=== PATIENT | female | born 1965 | race African-American/Black ===

== ENCOUNTER 2016-05-24 01:46 | Emergency (ER) | payer OTHER ==
[~2016-05-24] VITALS: Ht 170.2 cm; Wt 99.8 kg
--- NOTE | ~2016-05-24 | EKG ---
[address] [address] ELECTROCARDIOGRAM REPORT Name: DEIRDRE RIVERA [id number] Admission: 05/24/16 Attend Phys: Discharge: 05/24/16 Date of : 61 Report #: [id number] THIS REPORT FOR: //name// [facility] ED Test Date: 2016-05-24 Test Time: 01:56:47 Pat Name: DEIRDRE RIVERA Department: Room: Gender: F Export Coordinator: RUDOLPH : 1965 Requested By: Shameka Pina Order Number: [id number] MD: Drake Hamilton Measurements Intervals [place] Rate: 105 P: 50 NE: 127 QRS: 28 QRSD: 84 T: -20 QT: 358 QTc: 474 Interpretive Statements Sinus tachycardia Borderline T abnormalities, diffuse leads Compared to ECG 12/22/2015 10:34:37 T-wave abnormality now present Sinus rhythm no longer present ST (T wave) deviation no longer present Electronically Signed On 05-24-2016 15:31:31 CDT by Drake Hamilton [email or web address] <ELECTRONICALLY SIGNED> By: Drake Hamilton MD 05/24/16 1531 [id number] [id number] Drake Hamilton MD /EPI
[~2016-05-24 01:46] MED LIST: ADVIL100 M2 PO; BENTYL20 MG PO; DUONEB 2.5-0.5 M3 ML; FLEXERIL PO; FLONASE 0.05%50 MCG; IBUPROFEN 800800 M1 GT; LEVAQUIN 500 M500 M2 PO; MECLIZINE 25 MG25 M1 PO; MUCINEX TA600 MG/TA2 PO; NASAL SPRAY; NEURONTIN 300300 M1 PO; NORFLEX100 MG PO; PERCOCET 5-3251 EACH PO; PRILOSEC 20 MG20 MG PO; RANITIDINE 150150 MG PO; SUDAFED 12 HOU120 MG PO; TUSSIN15 MG/5 ML PO; TYLENOL COLD H1 EACH PO; ULTRAM 50MG TAB50 MG PO; VENTOLIN HFA 1818 GM; ZEPHREX-D30 MG PO; ZOFRAN 4 MG ORAL4 MG PO
[2016-05-24] MEDS ORDERED: ZYRTEC10 M5 PO (01:55)
[2016-05-24 02:17] LABS: ABSOLUTE NEUTROPHILS 3.2 thou/uL (1.4-8.2); BASOPHILS 0.9 % (0.0-2.0); EOSINOPHILS 2.2 % (0.0-3.0); HEMATOCRIT 34.5 % (37.0-47.0); HEMOGLOBIN 11.3 gm/dL (12.0-15.0); LYMPHOCYTES 32.7 % (24.0-44.0); MCH 26.4 pg (26.0-34.0); MCHC 32.8 g/dL (28.0-37.0); MCV 80.4 fL (80.0-100.0); MONOCYTES 6.1 % (1.0-8.0); PLATELET COUNT 222 thou/uL (150-400); POLYS 58.1 % (36.0-66.0); RBC 4.29 mil/uL (4.20-5.00); RDW 13.6 % (10.5-14.5); WBC 5.5 thou/uL (4.0-11.0)
[2016-05-24 02:19] LABS: MANUAL DIFF NO
[2016-05-24 02:27] LABS: ANION GAP 12 mmol/L (7-16); BUN 12 mg/dL (7-18); CALCIUM 9.2 mg/dL (8.5-10.1); CHLORIDE 105 mmol/L (98-107); CO2 26 mmol/L (21-32); GLUCOSE 141 mg/dL (70-99); POTASSIUM 3.2 mmol/L (3.5-5.1); SODIUM 143 mmol/L (136-145); TROPONIN-I < 0.04 ng/mL (<0.04-0.07)
[2016-05-24] MEDS ORDERED: XANAX 0.5 MG0.5 M1 PO (02:47)
[2016-05-24 03:10] VITALS: BP 121/80
== END 2016-05-24 03:11 | disposition home or self-care (01) ==
LOC: ER 01:46
PROVIDERS: Emergency Medicine
DX: F41.9 Anxiety disorder, unspecified (principal); R42 Dizziness and giddiness; R06.00 Dyspnea, unspecified; Z90.49 Acquired absence of other specified parts of digestive tract; Z88.6 Allergy status to analgesic agent; Z88.5 Allergy status to narcotic agent; Z88.8 Allergy status to other drugs, medicaments and biological substances

== ENCOUNTER 2016-09-28 18:58 | Emergency (ER) | payer OTHER ==
[~2016-09-28] VITALS: Ht 167.6 cm; Wt 99.8 kg
[~2016-09-28 18:58] MED LIST changes: +ANTIVERT25 MG PO; +AUGMENTIN 875-1 EACH PO; +XANAX 0.5 MG0.5 M1 PO; +ZYRTEC10 M5 PO
[2016-09-28 19:56] LABS: CALCIUM 9.4 mg/dL (8.5-10.1); CREATININE 0.9 mg/dL (0.6-1.0); POTASSIUM 3.6 mmol/L (3.5-5.1)
[2016-09-28 21:42] VITALS: BP 155/95
== END 2016-09-28 21:43 | disposition home or self-care (01) ==
LOC: ER 18:58
PROVIDERS: Nurse Practitioner
DX: R42 Dizziness and giddiness (principal); L98.8 Other specified disorders of the skin and subcutaneous tissue; J32.9 Chronic sinusitis, unspecified

== ENCOUNTER 2016-11-02 20:09 | Emergency (ER) | payer OTHER ==
[~2016-11-02] VITALS: Ht 167.6 cm; Wt 97.1 kg
[2016-11-02] MEDS ORDERED: COZAAR 25 MG TA25 M1 PO (20:23)
[2016-11-02 21:50] LABS: CALCIUM 9.5 mg/dL (8.5-10.1); CREATININE 0.9 mg/dL (0.6-1.0); POTASSIUM 3.6 mmol/L (3.5-5.1)
[2016-11-02 23:29] VITALS: BP 135/82
== END 2016-11-02 23:30 | disposition home or self-care (01) ==
LOC: ER 20:09
PROVIDERS: Physician Assistant
DX: S86.911A Strain of unspecified muscle(s) and tendon(s) at lower leg level, right leg, initial encounter (principal); Z98.51 Tubal ligation status; Z90.49 Acquired absence of other specified parts of digestive tract; Z88.5 Allergy status to narcotic agent; X58.XXXA Exposure to other specified factors, initial encounter; Y93.89 Activity, other specified; Y92.89 Other specified places as the place of occurrence of the external cause; Y99.8 Other external cause status

== ENCOUNTER 2017-04-19 17:19 | Emergency (ER) | payer OTHER ==
[~2017-04-19] VITALS: Ht 170.2 cm; Wt 97.5 kg
[~2017-04-19 17:19] MED LIST changes: +COZAAR 25 MG TA25 M1 PO
[2017-04-19] MEDS ORDERED: FLONASE 0.05%50 MCG NASAL (17:37)
[2017-04-19 17:43] LABS: URINE BILIRUBIN NEGATIVE (Negative); URINE BLOOD NEGATIVE (Negative); URINE CLARITY CLEAR; URINE COLOR YELLOW; URINE GLUCOSE-RANDOM* NEGATIVE (Negative); URINE KETONES NEGATIVE (Negative); URINE LEUKOCYTES 2+ (Negative); URINE NITRITE NEGATIVE (Negative); URINE PROTEIN (DIPSTICK) NEGATIVE (Negative); URINE UROBILINOGEN 0.2 E.U./dl (0.2-1.0)
[2017-04-19 17:49] LABS: BACTERIA 1-9 Few /HPF (None Seen); CASTS None Seen /LPF (None Seen); CRYSTALS None Seen /LPF (None Seen); SQUAMOUS 0-3 Few /LPF (0-3); URINE RBC None Seen /HPF (0-2); URINE WBC 6-15 Few /HPF (0-5)
[2017-04-19] MEDS ORDERED: BACTRIM DS TAB1 EACH PO (17:54)
[2017-04-19 18:27] VITALS: BP 153/95
== END 2017-04-19 18:29 | disposition home or self-care (01) ==
LOC: ER 17:19
PROVIDERS: Emergency Medicine
DX: J32.9 Chronic sinusitis, unspecified (principal); N39.0 Urinary tract infection, site not specified; F41.9 Anxiety disorder, unspecified; Z90.49 Acquired absence of other specified parts of digestive tract; Z88.5 Allergy status to narcotic agent

== ENCOUNTER 2017-07-07 09:13 | Emergency (ER) | payer OTHER ==
[~2017-07-07] VITALS: Ht 165.1 cm; Wt 99.8 kg
[~2017-07-07 09:13] MED LIST changes: +BACTRIM DS TAB1 EACH PO; +FLONASE 0.05%50 MCG NASAL
[2017-07-07] MEDS ORDERED: AUGMENTIN 875-1 EACH PO (09:46)
[2017-07-07 10:45] VITALS: BP 132/74
== END 2017-07-07 10:57 | disposition home or self-care (01) ==
LOC: ER 09:13
DX: J32.9 Chronic sinusitis, unspecified (principal); F41.9 Anxiety disorder, unspecified; Z90.49 Acquired absence of other specified parts of digestive tract; Z88.5 Allergy status to narcotic agent

== ENCOUNTER 2017-10-17 18:12 | Emergency (ER) | payer OTHER ==
[~2017-10-17] VITALS: Ht 170.2 cm; Wt 95.3 kg
--- NOTE | ~2017-10-17 | EKG ---
[address] [place] [address] ELECTROCARDIOGRAM REPORT Name: DEIRDRE RIVERA [facility]: [facility] [id number] Admission: 10/17/17 Attend Phys: Discharge: 10/17/17 Date of : 61 Report #: [id number] THIS REPORT FOR: //name// [facility] ED Test Date: 2017-10-17 Test Time: 19:20:30 Pat Name: DEIRDRE RIVERA Department: Room: Gender: F Air Pollution Auditor: RUDOLPH : 1965 Requested By: Alejandra Boss Order Number: [id number] MD: Yanick Foley Measurements Intervals [place] Rate: 76 P: 27 TN: 120 QRS: 25 QRSD: 82 T: 28 QT: 378 QTc: 426 Interpretive Statements Sinus rhythm Borderline T wave abnormalities Compared to ECG 09/06/2016 14:50:27 Early R-wave progression no longer present Electronically Signed On 10-18-2017 13:02:24 CDT by Yanick Foley [email or web address] <ELECTRONICALLY SIGNED> By: Yanick Foley MD, [facility] 10/18/17 1302 D: [id number] Yanick Foley MD, FACC /EPI
[2017-10-17] MEDS ORDERED: NORVASC5 MG PO (19:04)
[2017-10-17] MEDS ORDERED: XANAX 0.5 MG0.5 MG PO (19:06)
[2017-10-17] MEDS ORDERED: REGLAN 10 MG TA10 MG PO (19:07)
[2017-10-17] MEDS ORDERED: PROTONIX 20 MG20 M1 PO (19:07)
[2017-10-17 19:19] LABS: BASOPHILS 0.4 % (0.0-2.0); EOSINOPHILS 1.3 % (0.0-3.0); HEMATOCRIT 35.4 % (37.0-47.0); HEMOGLOBIN 11.8 gm/dL (12.0-15.0); LYMPHOCYTES 37.3 % (24.0-44.0); MCHC 33.2 g/dL (28.0-37.0); MCV 81.4 fL (80.0-100.0); MONOCYTES 7.3 % (1.0-8.0); PLATELET COUNT 228 thou/uL (150-400); POLYS 53.7 % (36.0-66.0); RBC 4.35 mil/uL (4.20-5.00); RDW 13.3 % (10.5-14.5); WBC 3.7 thou/uL (4.0-11.0)
[2017-10-17 19:23] LABS: ANION GAP 7 mmol/L (7-16); BUN 7 mg/dL (7-18); CALCIUM 9.2 mg/dL (8.5-10.1); CHLORIDE 106 mmol/L (98-107); CO2 27 mmol/L (21-32); CREATININE 1.1 mg/dL (0.6-1.0); GLUCOSE 96 mg/dL (74-106); POTASSIUM 3.6 mmol/L (3.5-5.1); SODIUM 140 mmol/L (136-145)
[2017-10-17 19:32] LABS: LIPASE 120 U/L (73-393); TROPONIN-I <0.06 ng/mL (<0.06)
[2017-10-17 20:24] LABS: URINE BILIRUBIN NEGATIVE (Negative); URINE BLOOD TRACE (Negative); URINE CLARITY CLEAR; URINE COLOR YELLOW; URINE GLUCOSE-RANDOM* NEGATIVE (Negative); URINE KETONES NEGATIVE (Negative); URINE NITRITE-REFLEX NEGATIVE (Negative); URINE PROTEIN (DIPSTICK) NEGATIVE (Negative); URINE UROBILINOGEN 0.2 E.U./dl (0.2-1.0)
[2017-10-17 20:25] LABS: URINE LEUKOCYTES-REFLEX 3+ (Negative)
[2017-10-17 20:31] LABS: MUCUS 4-6 Moderate strn/LPF (None Seen); SQUAMOUS 4-10 Moderate /LPF (0-3)
[2017-10-17 20:32] LABS: URINE WBC-REFLEX >25 Many /HPF (0-5)
[2017-10-17 20:33] LABS: BACTERIA-REFLEX 1-9 Few /HPF (None Seen); CASTS None Seen /LPF (None Seen); CRYSTALS None Seen /LPF (None Seen); RENAL EPITHELIAL CELLS 0-3 Few /LPF (None Seen)
[2017-10-17 20:34] LABS: URINE RBC 0-2 Rare /HPF (0-2)
[2017-10-17] MEDS ORDERED: KEFLEX500 M1 PO (20:44)
[2017-10-17 21:34] VITALS: BP 137/85
== END 2017-10-17 21:34 | disposition home or self-care (01) ==
LOC: ER 18:12
PROVIDERS: Nurse Practitioner Family
DX: R42 Dizziness and giddiness (principal); R11.0 Nausea; F41.9 Anxiety disorder, unspecified; N39.0 Urinary tract infection, site not specified; Z88.8 Allergy status to other drugs, medicaments and biological substances; Z90.49 Acquired absence of other specified parts of digestive tract

== ENCOUNTER 2017-11-15 10:26 | Emergency (ER) | payer OTHER ==
[~2017-11-15] VITALS: Ht 170.2 cm; Wt 96.6 kg
[~2017-11-15 10:26] MED LIST changes: +KEFLEX500 M1 PO; +NORVASC5 MG PO; +PROTONIX 20 MG20 M1 PO; +REGLAN 10 MG TA10 MG PO; +XANAX 0.5 MG0.5 MG PO
[2017-11-15] MEDS ORDERED: LEXAPRO 10 MG T10 M2 PO (10:29)
[2017-11-15] MEDS ORDERED: HYDRALAZINE 2525 MG PO (10:33)
[2017-11-15] MEDS ORDERED: VITAMIN D5000 UNIT PO (10:34)
[2017-11-15] MEDS ORDERED: HYDROXYZINE HCL25 M1 PO (10:34)
[2017-11-15] MEDS ORDERED: ZANTAC 150MG T150 MG PO (10:36)
[2017-11-15] MEDS ORDERED: XANAX 0.5 MG0.5 MG PO (10:36)
[2017-11-15 11:06] LABS: ABSOLUTE NEUTROPHILS 3.3 thou/uL (1.4-8.2); BASOPHILS 0.5 % (0.0-2.0); EOSINOPHILS 0.3 % (0.0-3.0); HEMATOCRIT 37.6 % (37.0-47.0); HEMOGLOBIN 12.5 gm/dL (12.0-15.0); LYMPHOCYTES 24.2 % (24.0-44.0); MCHC 33.3 g/dL (28.0-37.0); MCV 81.2 fL (80.0-100.0); MONOCYTES 5.1 % (1.0-8.0); PLATELET COUNT 259 thou/uL (150-400); POLYS 69.9 % (36.0-66.0); RBC 4.63 mil/uL (4.20-5.00); RDW 13.4 % (10.5-14.5); WBC 4.8 thou/uL (4.0-11.0)
[2017-11-15 11:13] LABS: CALCIUM 10.3 mg/dL (8.5-10.1); CREATININE 0.9 mg/dL (0.6-1.0); POTASSIUM 3.5 mmol/L (3.5-5.1)
[2017-11-15 11:41] VITALS: BP 122/86
== END 2017-11-15 11:58 | disposition home or self-care (01) ==
LOC: ER 10:26
PROVIDERS: Physician Assistant
DX: F41.9 Anxiety disorder, unspecified (principal); Z88.6 Allergy status to analgesic agent

== ENCOUNTER 2018-02-02 11:12 | Emergency (ER) | payer OTHER ==
[~2018-02-02] VITALS: Ht 170.2 cm; Wt 96.6 kg
--- NOTE | ~2018-02-02 | EKG ---
[address] [place] [address] ELECTROCARDIOGRAM REPORT Name: DEIRDRE RIVERA [facility] [id number] Admission: 02/02/18 Attend Phys: Discharge: Date of : 61 Report #: [id number] THIS REPORT FOR: //name// [facility] ED Test Date: 2018-02-02 Test Time: 11:43:57 Pat Name: DEIRDRE RIVERA Department: Room: Gender: F Care Coordinator: ALYX : 1965 Requested By: Kendra Peng Order Number: [id number] MD: Drake Hamilton Measurements Intervals [place] Rate: 70 P: 46 [place]: 127 QRS: 30 QRSD: 77 T: 21 QT: 415 QTc: 448 Interpretive Statements Sinus rhythm Borderline T wave abnormalities Compared to ECG 10/17/2017 19:20:30 No significant changes Electronically Signed On 02-02-2018 13:30:57 [employer]IL [employer] GAS SUPERINTENDENT by Drake Hamilton [email or web address] <ELECTRONICALLY SIGNED> By: Drake Hamilton MD 02/02/18 1330 1143 1143 MD FLORENCIO Shields
[~2018-02-02 11:12] MED LIST changes: +HYDRALAZINE 2525 MG PO; +HYDROXYZINE HCL25 M1 PO; +LEXAPRO 10 MG T10 M2 PO; +VITAMIN D5000 UNIT PO; +ZANTAC 150MG T150 MG PO
[2018-02-02] MEDS ORDERED: ZYRTEC10 M5 PO (11:29)
[2018-02-02 11:44] LABS: HEMOGLOBIN 11.9 gm/dL (12.0-15.0)
[2018-02-02 11:49] LABS: ABSOLUTE NEUTROPHILS 2.8 thou/uL (1.4-8.2); BASOPHILS 0.8 % (0.0-2.0); EOSINOPHILS 0.9 % (0.0-3.0); HEMATOCRIT 35.8 % (37.0-47.0); LYMPHOCYTES 23.6 % (24.0-44.0); MCHC 33.1 g/dL (28.0-37.0); MCV 81.7 fL (80.0-100.0); MONOCYTES 5.5 % (1.0-8.0); PLATELET COUNT 231 thou/uL (150-400); POLYS 69.2 % (36.0-66.0); RBC 4.39 mil/uL (4.20-5.00); RDW 14.1 % (10.5-14.5)
[2018-02-02 11:51] LABS: ANION GAP 6 mmol/L (7-16); BUN 11 mg/dL (7-18); CALCIUM 9.5 mg/dL (8.5-10.1); CHLORIDE 106 mmol/L (98-107); CO2 27 mmol/L (21-32); CREATININE 0.9 mg/dL (0.6-1.0); GLUCOSE 94 mg/dL (74-106); POTASSIUM 3.9 mmol/L (3.5-5.1); SODIUM 139 mmol/L (136-145)
[2018-02-02 12:00] LABS: TROPONIN-I <0.06 ng/mL (<0.06)
[2018-02-02] MEDS ORDERED: MUCINEX D TABL1 EAC1 PO (13:39)
[2018-02-02 13:53] VITALS: BP 114/72
== END 2018-02-02 13:53 | disposition home or self-care (01) ==
LOC: ER 11:12
PROVIDERS: Student in an Organized Health Care Education/Training Program
DX: R09.81 Nasal congestion (principal); R42 Dizziness and giddiness; F41.9 Anxiety disorder, unspecified; Z90.49 Acquired absence of other specified parts of digestive tract; Z98.890 Other specified postprocedural states; Z88.8 Allergy status to other drugs, medicaments and biological substances; Z88.5 Allergy status to narcotic agent

== ENCOUNTER 2018-06-01 09:20 | Emergency (ER) | payer OTHER ==
[~2018-06-01] VITALS: Ht 170.2 cm; Wt 96.6 kg
[2018-06-01 09:20] VITALS: BP 137/86
[~2018-06-01 09:20] MED LIST changes: +MUCINEX D TABL1 EAC1 PO
[2018-06-01 09:44] LABS: URINE BILIRUBIN NEGATIVE (Negative); URINE BLOOD 3+ (Negative); URINE CLARITY CLOUDY; URINE COLOR YELLOW; URINE GLUCOSE-RANDOM* NEGATIVE (Negative); URINE KETONES TRACE (Negative); URINE NITRITE-REFLEX NEGATIVE (Negative); URINE PROTEIN (DIPSTICK) 2+ (Negative); URINE SPECIFIC GRAVITY >= 1.030 (1.005-1.035); URINE UROBILINOGEN 0.2 E.U./dl (0.2-1.0)
[2018-06-01 09:45] LABS: URINE LEUKOCYTES-REFLEX 2+ (Negative)
[2018-06-01 09:51] LABS: URINE WBC-REFLEX >25 Many /HPF (0-5)
[2018-06-01 09:52] LABS: AMORPHOUS URATES Few /LPF (None Seen); CASTS None Seen /LPF (None Seen); SQUAMOUS None Seen /LPF (0-3); URINE RBC >20 Many /HPF (0-2)
[2018-06-01] MEDS ORDERED: PHENAZOPYRIDIN200 M2 PO (10:05)
[2018-06-01] MEDS ORDERED: BACTRIM DS TAB1 EACH PO (10:05)
== END 2018-06-01 10:10 | disposition home or self-care (01) ==
LOC: ER 09:20
PROVIDERS: Emergency Medicine
DX: N39.0 Urinary tract infection, site not specified (principal); F41.9 Anxiety disorder, unspecified; Z90.49 Acquired absence of other specified parts of digestive tract; Z98.890 Other specified postprocedural states; Z88.5 Allergy status to narcotic agent; Z88.8 Allergy status to other drugs, medicaments and biological substances